=== PATIENT | female | born 1985 | race Caucasian/White ===

== ENCOUNTER → 2016-12-05 | Outpatient (CLI) | payer OTHER | LOC: FIMAGING 12:04 | PROVIDERS: ATTEND Obstetrics & Gynecology | DX: Z36 Encounter for antenatal screening of mother (principal); Z3A.21 21 weeks gestation of pregnancy ==

== ENCOUNTER 2017-04-01 18:40 | Inpatient (IN) | payer OTHER ==
[2017-04-01] MEDS ORDERED: LR 1,000 ML IV PRN (19:33)
[2017-04-01] MEDS ORDERED: TERBUTALINE SULFATE 1 MG/ML VIAL IV PRN (19:33)
[2017-04-01] MEDS ORDERED: OXYTOCIN/RINGERS LACTATE 1,000 ML IV PRN (19:33)
[2017-04-01] MEDS ORDERED: OLIVE OIL 118 ML BTL MISC PRN (19:33)
[2017-04-01] MEDS ORDERED: EPSOM SALT 454 GM TP PRN (19:33)
--- NOTE | 2017-04-01 19:45 | OBPROG ---
OBG Labor Progress Note Assessment/Plan: Assessment: contractions q2-3 coping well with the contractions vs wnl afebrile + bloody show exam /-1 cephalic cat2 plan reviewed declines iv Plan:expectant management 04/01/17 19:40 Subjective: Feeling pain with the contractions. Coping well through the contractions. + bloody show, denies breaking of arevalo. Feeling minimal movement. - SVE Dilation (cm): 6 Effacement (%): 80 Station: -1 - Physical Exam General Appearance: WD/WN, alert, no apparent distress Respiratory: chest non-tender, lungs clear, normal breath sounds Cardiac/Chest: regular rate, rhythm Abdomen: normal bowel sounds Extremities: Gela's sign (negative bilaterally) DTR- Lower Extremities: Knee (R): 1+, Knee (L): 1+ (no clonus bilaterally) Skin: normal color, warm/dry Neuro/Psych: no motor/sensory deficits, alert, normal mood/affect, oriented x 3 ICD10 Worksheet Patient Problems: Problems Problem Status Onset term labor Acute
[2017-04-01 20:17] LABS: % IMMATURE GRANULYOCYTES 0.5 % (0.0-1.1); ABSOLUTE IMMATURE GRANULOCYTES 0.08 10^3/uL (0.00-0.10); ADD DIFF? NO; ADD MORPH? NO; ADD SCAN? NO; ATYPICAL LYMPHOCYTE FLAG 0 (0-99); FRAGMENT RBC FLAG 0 (0-99); HEMATOCRIT 40.4 % (38.0-47.0); HEMOGLOBIN 13.8 g/dL (12.6-16.3); LEFT SHIFT FLG 0 (0-99); LIPEMIA HEMOLYSIS FLAG 90 (0-99); MEAN CELL HEMOGLOBIN 31.2 pg (27.9-34.1); MEAN CELL HEMOGLOBIN CONCENTR. 34.2 g/dL (32.4-36.7); MEAN CELL VOLUME 91.2 fL (81.5-99.8); MEAN PLATELET VOLUME 11.8 fL (8.7-11.7); PLATELET CLUMPS FLAG 0 (0-99); PLATELET COUNT 163 10^3/uL (150-400); RED BLOOD CELL COUNT 4.43 10^6/uL (4.18-5.33); RED CELL DISTRIBUTION WIDTH 12.5 % (11.5-15.2)
[2017-04-01] MEDS ORDERED: LIDOCAINE 1% 300 MG/30 ML SDV ONE (20:32)
[2017-04-01] MEDS ORDERED: OLIVE OIL 118 ML BTL ONE (20:32)
[2017-04-01] MEDS ORDERED: OXYTOCIN 10 UNIT/ML VIAL ONE (20:33)
[2017-04-01] MEDS ORDERED: AMMONIA AROMATIC 1 EACH AMP IH ONE (20:33)
[2017-04-01] MEDS ORDERED: TERBUTALINE SULFATE 1 MG/ML VIAL ONE (20:33)
[2017-04-01] MEDS ORDERED: MISOPROSTOL 200 MCG TAB ONE (20:34)
--- NOTE | 2017-04-01 20:44 | GHP ---
[f rep st] HISTORY AND PHYSICAL DATE OF ADMISSION: 04/01/2017 HISTORY OF PRESENT ILLNESS: The patient is a 31-year-old 2, para 1, with an EDC of 04/12/2017 with a gestational age of 38-3/7th weeks who comes in with complaint of irregular contractions since yesterday at 2130. Regular contractions since 1700 on 04/01/2017. [place] [facility] Had received care routinely with [facility] early in of November 2016. MEDICAL HISTORY: The patient in the past has done marijuana, discontinued in 2012. Previous history of cystitis x1. History of asthma as a child. History of HSV type 1 in 2015. SURGICAL HISTORY: [place] teeth extraction. GYNECOLOGICAL HISTORY: A colpo in 2012. Natural family planning routinely for contraception. FAMILY HISTORY: Noncontributory. SOCIAL HISTORY: Denies smoking, denies alcohol with the . The patient is . PREVIOUS HISTORY: In 11/2015 a boy that weighed 7 pounds 1 ounces at 39 weeks, 7 hours of labor. The patient was able to deliver vaginally without medical intervention. LABORATORY DATA: The patient is A positive, antibody negative. RPR is nonreactive. Rubella is immune. Hepatitis is negative. HIV is negative. Trio screen was declined. Urine culture was negative. All other genetic screening was declined. 1 hour GTT was within normal limits. GBS was negative. MEDICATIONS: Patient is taking vitamins with DHA and folic acid. ALLERGIES: Patient is allergic to Ceclor. Had difficulties as a child. PHYSICAL EXAMINATION: GENERAL: Patient is awake, alert, oriented x3. LUNGS: Clear bilaterally. ABDOMEN: Bowel sounds are positive in all 4 quadrants. EXTREMITIES: DTRs are 1+ bilaterally. Homans sign is negative bilaterally. Contractions are every 2-3. Digital exam of cervix -1, cephalic. Positive bloody show. PLAN OF CARE: 1. GBS negative. 2. Natural labor. Declined medical intervention. 3. The patient declines IV at this time. 4. Expectant management of labor. 5. Consult physician as needed for plan of care. /[id number]/MODL MTDD
--- NOTE | 2017-04-01 22:45 | OBPROG ---
OBG Labor Progress Note Assessment/Plan: Assessment: contractions q2-3 coping well with the contractions vs wnl afebrile + bloody show exam /-1 cephalic doppler q15 minutes after cat 1 fhr intially plan reviewed declines iv tub for pain relief feeling pressure" like I have to have a bm with contractions Plan:expectant management 04/01/17 19:40 04/01/17 22:43 Objective: 04/01/17 19:10 Patient ABO/Rh A POSITIVE 04/01/17 19:10 - SVE Dilation (cm): 8 Effacement (%): 90 Station: -1 Oxytocin Orders Assessment - Pre-Induction/Augmentation Assessment Gestational Age: 38 week(s) and 3 day(s) ICD10 Worksheet Patient Problems: Problems Problem Status Onset term labor Acute
--- NOTE | 2017-04-02 01:28 | OBPROG ---
OBG Labor Progress Note Assessment/Plan: Assessment: contractions q2-3 moderate on palpation nauseous vs wnl afebrile + bloody show exam /- cephalic unchanged replaced on monitor cat 1 fhr plan reviewed declines iv tub for pain relief on and off " I don't feel good" Plan:discussed nipple stimulation, discussed arom at this time patient declines arom thinking about nipple stimulation 04/01/17 19:40 04/01/17 22:43 04/02/17 01:26 Objective: 04/01/17 19:10 Patient ABO/Rh A POSITIVE 04/01/17 19:10 - SVE Dilation (cm): 8 Effacement (%): 90 Station: -1 Oxytocin Orders Assessment - Pre-Induction/Augmentation Assessment Gestational Age: 38 week(s) and 3 day(s) ICD10 Worksheet Patient Problems: Problems Problem Status Onset term labor Acute
[2017-04-02] MEDS ORDERED: METHYLERGONOVINE MAL 0.2 MG/ML INJ ONE (03:28)
--- NOTE | 2017-04-02 03:45 | OBDEL ---
Info Type: Vaginal GBS+: No Indications for Delivery: Spontaneous Labor Vaginal Delivery - Labor and Delivery Onset of Contractions Date: 03/31/17 Onset of Contractions Time: 21:30 Onset of Contractions Type: Spontaneous Rupture of Membranes Date: 04/02/17 Rupture of Membranes Time: 01:44 Rupture of Membranes Type: Artificial Amniotic Fluid Color: Clear Dilation Complete Date: 04/02/17 Dilation Complete Time: 02:43 Placenta Delivery Date: 04/02/17 Placenta Delivery Time: 03:20 Total Hours of Labor: 29 Non-surgical Procedures: Amniotomy Vaginal Sponge Count Correct: Yes Vaginal Needle Count Correct: Yes Vaginal Sweep Performed: No EBL: 550 Delivery Events: Post Hemorrhage Delivery Comment: With Delivery of the baby and separation of placenta increased bleeding. Est 450 with delivery another 116 after delivery of placenta. Iv started with patient consent. Methergine given in right thigh. Pitocin bolus infusing. Assessment of perineum Intact no repair needed. CBC at 0600 - Medications Labor Augmentation/Induction Methods Used: None Data Valles Delivery Date: 04/02/17 Delivery Time: 03:14 SHRUTHI: 04/12/17 Gestational Age: 38 week(s) and 4 day(s) Sex of : Male Score (1 Min): 8 Score (5 Min): 9 ICD10 Worksheet Patient Problems: Problems Problem Status Onset term labor Acute
[2017-04-02] MEDS ORDERED: HYDROCORTISONE 0.5% CREAM TP PRN (03:49)
[2017-04-02] MEDS ORDERED: ACETAMINOPHEN 325 MG TAB PO PRN (03:49)
[2017-04-02] MEDS ORDERED: HYDROCODONE/APAP 5/325 TAB PO PRN (03:49)
[2017-04-02] MEDS ORDERED: SIMETHICONE 80 MG TAB CHEW PO PRN (03:49)
[2017-04-02] MEDS ORDERED: METHYLERGONOVINE MAL 0.2 MG/ML INJ IM ONE (04:08)
[2017-04-02] MEDS: IBUPROFEN 600 MG TAB PO PRN ×4 (04:21→21:12)
[2017-04-02 06:22] LABS: HEMATOCRIT 35.4 % (38.0-47.0); HEMOGLOBIN 12.5 g/dL (12.6-16.3); MEAN CELL HEMOGLOBIN 31.1 pg (27.9-34.1); MEAN CELL HEMOGLOBIN CONCENTR. 35.3 g/dL (32.4-36.7); MEAN CELL VOLUME 88.1 fL (81.5-99.8); RED BLOOD CELL COUNT 4.02 10^6/uL (4.18-5.33); RED CELL DISTRIBUTION WIDTH 12.1 % (11.5-15.2)
[2017-04-02] MEDS: DOCUSATE SODIUM 100 MG CAP PO PRN ×2 (08:51→21:11)
[2017-04-02] MEDS: METHYLERGONOVINE MAL 0.2 MG TAB PO SCH ×3 (08:51→21:12)
[2017-04-02] MEDS: IRON POLYSAC/IRON HEME 28 MG TAB PO SCH (11:08)
--- NOTE | 2017-04-02 13:17 | OBPP ---
Progress Note Assessment/Plan: Assessment: 31 y/o PPD #0 s/p doing well now. Plan: Pt had a PP hemorrhage now under control and she will complete course of PO Methergine. Will start Bifera today. support and routine PPC. 04/02/17 13:16 Subjective: Pt is doing well now. She is ambulating and voiding without difficulty and has min lochia. Breast feeding well and baby is doing well. She has min cramping controlled with Ibuprofen. Objective: 04/02/17 06:00 Patient ABO/Rh A POSITIVE 04/01/17 19:10 Temp Pulse Resp BP Pulse Ox 37 C 66 16 111/62 04/02/17 07:29 04/02/17 05:25 04/02/17 07:29 04/02/17 07:29 Uterine Position/Fundal Height: Umbilicus -3 Uterine Tone: Firm Physical Exam - Physical Exam General Appearance: WD/WN, alert, no apparent distress Neck: non-tender, full range of motion, supple Respiratory: chest non-tender, lungs clear, normal breath sounds Cardiac/Chest: regular rate, rhythm Abdomen: normal bowel sounds Extremities: swelling (no), Gela's sign (neg)
[2017-04-03] MEDS ORDERED: SUCROSE 1 EA UDL ONE (01:26)
[2017-04-03] MEDS: IBUPROFEN 600 MG TAB PO PRN ×2 (03:24→09:30)
[2017-04-03] MEDS: METHYLERGONOVINE MAL 0.2 MG TAB PO SCH (03:24)
--- NOTE | 2017-04-03 09:05 | OBPP ---
Progress Note Assessment/Plan: Assessment: PPD 1 1/2 s/p PPH Plan: D/C home, iron daily 04/03/17 09:02 Subjective: Pt doing fine. desires d/c. bld is light. urinating fine. tolerating fine. working on BF. reports mood is good Objective: 04/02/17 06:00 Patient ABO/Rh A POSITIVE 04/01/17 19:10 Temp Pulse Resp BP Pulse Ox 36.2 C 83 16 100/61 94 04/02/17 21:16 04/02/17 21:16 04/02/17 21:16 04/02/17 21:16 04/02/17 21:16 Uterine Position/Fundal Height: Umbilicus -2 Uterine Tone: Firm Physical Exam - Physical Exam General Appearance: WD/WN, alert Abdomen: non-tender, soft, other (FF at umb-2) Extremities: non-tender, pedal edema (minimal) Skin: normal color, warm/dry Neuro/Psych: alert, normal mood/affect
[2017-04-03 09:26] VITALS: BP 95/60; PULSE 67; RESP 17; TEMP 98; O2SAT 96
--- NOTE | 2017-04-03 09:26 | OBGCSDC ---
General Delivery Information - General Info : 2 Para: 2 Delivery Physician/CNM: Margy Early Labs: Patient ABO/Rh A POSITIVE 04/01/17 19:10 Hct 35.4 % (38.0-47.0) L 04/02/17 06:00 Vaginal - Diagnosis Labor: Spontaneous Presentation at Delivery: Vertex Rupture of Membranes Type: Artificial Amniotic Fluid Color: Clear Delivery Events: Post Hemorrhage - Operations/Procedures Non-surgical Procedures: Amniotomy L&D Analgesia/Anesthesia Type: None - Delivery Non-surgical Procedures: Amniotomy L&D Analgesia/Anesthesia Type: None Data Valles Delivery Date: 04/02/17 Delivery Time: 03:14 SHRUTHI: 04/12/17 Gestational Age: 38 week(s) and 5 day(s) Sex of Infant: Male Weight (gm): 3604 g Score (1 Min): 8 Score (5 Min): 9 Discharge Information - Discharge Information Discharge Medications: Iron, Ibuprofen, Vitamins Condition: Good Instruction/Follow Up: Four Weeks, Six Weeks Discharge Physician/CNM: Stephanie Knowles
[2017-04-03] MEDS: IRON POLYSAC/IRON HEME 28 MG TAB PO SCH (09:30)
[2017-04-03] MEDS: DOCUSATE SODIUM 100 MG CAP PO PRN (09:31)
== END 2017-04-03 15:00 | disposition home or self-care (01) | DRG 774 ==
LOC: FLD 18:40 → FOB 04-02 20:03
PROVIDERS: ADMIT Advanced Practice Midwife; ATTEND Obstetrics & Gynecology
PROC: 10E0XZZ Delivery of Products of Conception, External Approach (ICD-10-PCS; principal; 2017-04-02)
PROC: 10907ZC Drainage of Amniotic Fluid, Therapeutic from Products of Conception, Via Natural or Artificial Opening (ICD-10-PCS; 2017-04-02)
DX: O72.0 Third-stage hemorrhage (principal); Z3A.38 38 weeks gestation of pregnancy; Z37.0 Single live birth
CPT/HCPCS: G0463; J2210; J2590; J3105

== ENCOUNTER → 2018-10-19 | Outpatient (CLI) | payer OTHER | LOC: FIMAGING 09:42 | PROVIDERS: ATTEND Advanced Practice Midwife | DX: O35.8XX0 Maternal care for other (suspected) fetal abnormality and damage, not applicable or unspecified (principal); Z3A.19 19 weeks gestation of pregnancy ==

== ENCOUNTER → 2019-01-14 | Outpatient (CLI) | payer OTHER | LOC: FIMAGING 13:43 ==